=== PATIENT | male | born 1970 | race Asian ===

== ENCOUNTER → 2023-02-08 | Emergency (ER) | payer MEDICAID ==
[~2023-02-08] VITALS: Ht 167.6 cm; Wt 83.9 kg
[~2023-02-08] MED LIST: HYDR-3980 PO; HYDROCODONE/APAP 10/325MG TABLET ONE; HYDROCODONE/APAP 10/325MG TABLET PO ONE; LIDO30CR TP; LIDOCAINE 1%-EPI 1:100,000 20 ML VIAL ONE; LIDOCAINE 1%-EPI 1:100,000 50 ML VIAL IJ ONE
[2023-02-08 09:31] VITALS: BP 133/78; TEMP 98.1; O2SAT 100
--- NOTE | 2023-02-08 09:33 | NUR ---
AAOx3, came to ER c/o unhealing boil to buttock area. Post I&D, +discharge noted. On atbx x 4 days. Afebrile. AMISHA. Will continuously monitor the patient. Awaiting md for tammi. Addendum: 02/08/23 at 0940 by GARETHDA PT STATES ATB HE'S TAKING IS CEPHALAXIN AND BCATRIM
--- NOTE | 2023-02-08 10:00 | NUR ---
DR STALEY AT BEDSIDE I&D BEING PERFORMED. WILL CONTINUE TO MONITOR.
--- NOTE | 2023-02-08 10:43 | NUR ---
Patient discharged to home in stable condition. Written and verbal after care instructions given. Patient verbalizes understanding of instruction.
== END | disposition home or self-care (01) ==
LOC: ER 09:36
DX: L02.31 Cutaneous abscess of buttock (principal); I10 Essential (primary) hypertension; Z60.2 Problems related to living alone
CPT/HCPCS: 99283; 10060; J3490 ×2; A6403